=== PATIENT | female | born 1965 | race Caucasian/White ===

== ENCOUNTER 2024-05-15 07:03 | Day surgery (SDC) | payer OTHER ==
[~2024-05-15] VITALS: Ht 172.7 cm; Wt 90.7 kg
[2024-05-15] MEDS ORDERED: SIMETHICONE 40 MG/0.6 ML ML ONE (07:30)
[2024-05-15] MEDS ORDERED: MIDAZOLAM HCL 5 MG/5 ML VIAL ONE (07:30)
[2024-05-15] MEDS ORDERED: MEPERIDINE 100 MG INJ. 100 MG/ML VIAL ONE (07:30)
[2024-05-15 07:42] LABS: HCG,QUAL RESULT NEGATIVE (NEGATIVE)
[2024-05-15 12:37] VITALS: O2SAT 96
[2024-05-15 16:58] VITALS: BP_SYST 114; PULSE 63; RESP 12
== END 2024-05-15 09:43 | disposition home or self-care (01) ==
LOC: SDS 07:03 → SMU 07:04 → SDS 09:43
PROVIDERS: ATTEND Internal Medicine Gastroenterology
DX: R19.4 Change in bowel habit (principal); D12.0 Benign neoplasm of cecum; D12.2 Benign neoplasm of ascending colon; K29.50 Unspecified chronic gastritis without bleeding; K31.A0 Gastric intestinal metaplasia, unspecified; K21.00 Gastro-esophageal reflux disease with esophagitis, without bleeding; R10.13 Epigastric pain; K44.9 Diaphragmatic hernia without obstruction or gangrene; K57.30 Diverticulosis of large intestine without perforation or abscess without bleeding; K64.8 Other hemorrhoids; K92.89 Other specified diseases of the digestive system; F17.210 Nicotine dependence, cigarettes, uncomplicated; Z90.49 Acquired absence of other specified parts of digestive tract; Z98.890 Other specified postprocedural states; Z79.82 Long term (current) use of aspirin; Z79.899 Other long term (current) drug therapy; Z80.0 Family history of malignant neoplasm of digestive organs
CPT/HCPCS: 84703; 43239; 45385; 88305; 88312; 88313; 99152; 99153; G0378; J2250; J2175